=== PATIENT | male | born 1930 | race African-American/Black ===

== ENCOUNTER 2016-10-31 15:31 | Inpatient (IN) | payer MEDICARE, OTHER ==
[~2016-10-31] VITALS: Ht 180.3 cm; Wt 73.5 kg
[~2016-10-31 15:31] MED LIST: TRAZ-129 PO
[2016-10-31] MEDS ORDERED: SODIUM CHLORIDE 0.9% 1,000 ML IV ONE (16:12)
[2016-10-31 16:49] LABS: BASOPHILS % 0.8 % (0.0-2.0); EOSINOPHILS % 1.9 % (0.0-5.0); HEMATOCRIT. 33.9 % (42.0-52.0); HEMOGLOBIN. 11.1 g/dL (14.0-18.0); LYMPHOCYTES % 40.8 % (20.0-50.0); MEAN CORPUSCULAR HEMOGLOBIN 30.1 pg (28.0-32.0); MEAN CORPUSCULAR VOLUME 91.7 fL (80.0-94.0); MEAN PLATELET VOLUME 10.3 fl (7.4-10.4); MONOCYTES % 10.7 % (2.0-8.0); NEUTROPHILS % 45.8 % (40.0-76.0); PLATELET 190 x1000/uL (130-400)
[2016-10-31 16:55] LABS: CARBON DIOXIDE 30 mEq/L (21-32); CHLORIDE 105 mEq/L (98-107)
[2016-10-31 16:56] LABS: AMMONIA 10 uMol/L (<32)
[2016-10-31 17:02] LABS: TROPONIN I < 0.02 ng/mL (0.00-0.04)
[2016-10-31 17:31] LABS: CLARITY URINE CLEAR (CLEAR); COLOR URINE YELLOW (YELLOW); GLUCOSE URINE NEGATIVE (NEGATIVE); KETONES URINE NEGATIVE (NEGATIVE); LEUKOCYTE ESTERASE URINE TRACE (NEGATIVE); NITRITE URINE NEGATIVE (NEGATIVE); OCCULT BLOOD URINE TRACE (NEGATIVE); PH URINE 5.5 (4.5-8.0); PROTEIN URINE NEGATIVE (NEGATIVE); SPECIFIC GRAVITY URINE 1.015 (1.005-1.030); UROBILINOGEN URINE 0.2 E.U./dL (0.2-1.0)
[2016-10-31] MEDS ORDERED: CEFTRIAXONE 1 G PREMIX 50 ML IV ONE (18:30)
[2016-10-31 22:30] VITALS: BP 159/89
[2016-10-31] MEDS ORDERED: NA PHOS,M-B/NA PHOS,DI-BA ENEMA 118ML PR NR (23:45)
[2016-10-31] MEDS ORDERED: LORAZEPAM 1MG TABLET PO PRN (23:45)
[2016-10-31] MEDS ORDERED: ACETAMINOPHEN 650MG/20.3ML UDC PO PRN (23:45)
[2016-11-01] VITALS (7 sets, daily range): BP systolic 135–169; BP diastolic 71–91
[2016-11-01] MEDS: LORAZEPAM 2MG/ML CPJ IV PRN (00:31)
[2016-11-01] MEDS: SODIUM CHLORIDE 0.45% 1,000 ML IV SCH ×2 (00:32→10:14)
[2016-11-01] MEDS ORDERED: LEVOFLOXACIN 500MG PREMIX 100 ML IV NR (02:00)
[2016-11-01] MEDS ORDERED: CLON0.1T PO (03:55)
[2016-11-01] MEDS ORDERED: FOLI-43 PO (03:55)
[2016-11-01] MEDS ORDERED: DOCU-150 PO (03:55)
[2016-11-01] MEDS ORDERED: LORA1TAB PO (03:55)
[2016-11-01] MEDS ORDERED: BISA10SU97 PR (04:04)
[2016-11-01] MEDS ORDERED: ASCO-339 PO (04:04)
[2016-11-01] MEDS ORDERED: ACET-2178 PO (04:04)
[2016-11-01] MEDS ORDERED: SOD133EN RC (04:06)
[2016-11-01] MEDS: APIXABAN 5 MG TABLET PO SCH ×2 (09:38→18:06)
[2016-11-01] MEDS: DOCUSATE SODIUM 250MG CAPSULE PO SCH (09:38)
[2016-11-01] MEDS: FOLIC ACID/VITAMIN B COMP W-C TABLET PO SCH (09:38)
[2016-11-01] MEDS: CLONIDINE 0.1MG TABLET PO PRN (09:38)
[2016-11-01] MEDS: TRAZODONE HCL 50MG TABLET PO SCH (21:15)
[2016-11-02] VITALS: BP 167/86
[2016-11-02] MEDS: SODIUM CHLORIDE 0.45% 1,000 ML IV SCH ×3 (01:06→13:14)
[2016-11-02] MEDS: RISPERIDONE 1MG TABLET PO SCH ×3 (01:14→21:21)
[2016-11-02] MEDS: MEMANTINE HCL 5MG TABLET PO SCH ×2 (01:14→09:28)
[2016-11-02] MEDS: LEVOFLOXACIN 250MG PREMIX 50 ML IV SCH (01:43)
[2016-11-02 04:00] VITALS: BP 170/75
[2016-11-02 08:00] VITALS: BP 148/67
[2016-11-02] MEDS: DOCUSATE SODIUM 250MG CAPSULE PO SCH (09:28)
[2016-11-02] MEDS: FOLIC ACID/VITAMIN B COMP W-C TABLET PO SCH (09:28)
[2016-11-02] MEDS: APIXABAN 5 MG TABLET PO SCH ×2 (09:28→17:29)
[2016-11-02 12:00] VITALS: BP 138/79
[2016-11-02 16:00] VITALS: BP 152/75
[2016-11-02 20:00] VITALS: BP 137/70
[2016-11-02] MEDS: TRAZODONE HCL 50MG TABLET PO SCH (21:21)
[2016-11-03] VITALS: BP 141/76
[2016-11-03] MEDS: SODIUM CHLORIDE 0.45% 1,000 ML IV SCH ×3 (01:13→20:46)
[2016-11-03] MEDS: LEVOFLOXACIN 250MG PREMIX 50 ML IV SCH (01:14)
[2016-11-03 04:00] VITALS: BP 145/73
[2016-11-03 06:09] LABS: BASOPHILS % 0.5 % (0.0-2.0); EOSINOPHILS % 4.5 % (0.0-5.0); HEMATOCRIT. 28.4 % (42.0-52.0); HEMOGLOBIN. 9.1 g/dL (14.0-18.0); LYMPHOCYTES % 53.7 % (20.0-50.0); MEAN CORPUSCULAR HEMOGLOBIN 28.3 pg (28.0-32.0); MEAN CORPUSCULAR VOLUME 88.1 fL (80.0-94.0); MEAN PLATELET VOLUME 11.4 fl (7.4-10.4); MONOCYTES % 12.5 % (2.0-8.0); NEUTROPHILS % 28.8 % (40.0-76.0); PLATELET 106 x1000/uL (130-400); RED BLOOD CELL COUNT 3.22 mill/uL (4.7-6.1); RED CELL DISTRIBUTION WIDTH 13.6 % (11.6-14.6)
[2016-11-03 08:00] VITALS: BP 146/77
[2016-11-03 08:51] LABS: CARBON DIOXIDE 29 mEq/L (21-32); CHLORIDE 106 mEq/L (98-107)
[2016-11-03] MEDS: FOLIC ACID/VITAMIN B COMP W-C TABLET PO SCH (10:42)
[2016-11-03] MEDS: DOCUSATE SODIUM 250MG CAPSULE PO SCH (10:42)
[2016-11-03] MEDS: APIXABAN 5 MG TABLET PO SCH ×2 (10:43→18:02)
[2016-11-03] MEDS: MEMANTINE HCL 5MG TABLET PO SCH (10:43)
[2016-11-03] MEDS: RISPERIDONE 1MG TABLET PO SCH ×2 (10:43→20:46)
[2016-11-03 12:00] VITALS: BP 120/65
[2016-11-03 16:00] VITALS: BP 116/58
[2016-11-03 20:00] VITALS: BP 115/58
[2016-11-04] VITALS: BP 148/77
[2016-11-04] MEDS: LEVOFLOXACIN 250MG PREMIX 50 ML IV SCH (01:45)
[2016-11-04 04:00] VITALS: BP 128/71
[2016-11-04] MEDS: SODIUM CHLORIDE 0.45% 1,000 ML IV SCH (07:45)
[2016-11-04 08:00] VITALS: BP 132/62
[2016-11-04 08:43] LABS: HEMATOCRIT 28.6 % (42.0-52.0); HEMOGLOBIN 9.1 g/dL (14.0-18.0); MEAN CORPUSCULAR HEMOGLOBIN 28.1 pg (28.0-32.0); PLATELET 101 x1000/uL (130-400); RED BLOOD CELL COUNT 3.25 mill/uL (4.7-6.1)
[2016-11-04] MEDS: MEMANTINE HCL 5MG TABLET PO SCH (10:07)
[2016-11-04] MEDS: DOCUSATE SODIUM 250MG CAPSULE PO SCH (10:07)
[2016-11-04] MEDS: FOLIC ACID/VITAMIN B COMP W-C TABLET PO SCH (10:07)
[2016-11-04] MEDS: APIXABAN 5 MG TABLET PO SCH ×2 (10:19→16:50)
[2016-11-04] MEDS: RISPERIDONE 1MG TABLET PO SCH ×2 (10:19→20:20)
[2016-11-04 12:00] VITALS: BP 120/66
[2016-11-04 16:00] VITALS: BP 120/68
[2016-11-04 20:00] VITALS: BP 155/91
[2016-11-05] VITALS: BP 157/102
[2016-11-05] MEDS: LEVOFLOXACIN 250MG PREMIX 50 ML IV SCH (01:19)
[2016-11-05] MEDS: SODIUM CHLORIDE 0.45% 1,000 ML IV SCH ×2 (01:19→13:45)
[2016-11-05] MEDS: LORAZEPAM 2MG/ML CPJ IV PRN (02:46)
[2016-11-05 04:00] VITALS: BP 175/93
[2016-11-05] MEDS: CLONIDINE 0.1MG TABLET PO PRN (04:57)
[2016-11-05 06:09] VITALS: BP 111/69
[2016-11-05] MEDS: DOCUSATE SODIUM 250MG CAPSULE PO SCH (08:55)
[2016-11-05] MEDS: RISPERIDONE 1MG TABLET PO SCH ×2 (08:55→23:16)
[2016-11-05] MEDS: FOLIC ACID/VITAMIN B COMP W-C TABLET PO SCH (08:55)
[2016-11-05] MEDS: MEMANTINE HCL 5MG TABLET PO SCH (08:56)
[2016-11-05] MEDS: APIXABAN 5 MG TABLET PO SCH ×2 (08:56→18:34)
[2016-11-05 20:00] VITALS: BP 148/76
[2016-11-06] VITALS: BP 158/91
[2016-11-06] MEDS: LEVOFLOXACIN 250MG PREMIX 50 ML IV SCH (01:40)
[2016-11-06] MEDS ORDERED: LORAZEPAM 2MG/ML CPJ IV PRN (01:45)
[2016-11-06 04:00] VITALS: BP 151/84
[2016-11-06] MEDS: SODIUM CHLORIDE 0.45% 1,000 ML IV SCH ×2 (05:24→19:21)
[2016-11-06 06:28] LABS: BASOPHILS % 0.8 % (0.0-2.0); EOSINOPHILS % 2.9 % (0.0-5.0); HEMATOCRIT. 30.7 % (42.0-52.0); LYMPHOCYTES % 48.3 % (20.0-50.0); MEAN CORPUSCULAR HEMOGLOBIN 28.4 pg (28.0-32.0); MEAN PLATELET VOLUME 12.4 fl (7.4-10.4); MONOCYTES % 12.5 % (2.0-8.0); NEUTROPHILS % 35.5 % (40.0-76.0); PLATELET 94 x1000/uL (130-400); RED BLOOD CELL COUNT 3.53 mill/uL (4.7-6.1); RED CELL DISTRIBUTION WIDTH 13.9 % (11.6-14.6)
[2016-11-06 07:06] LABS: CHLORIDE 106 mEq/L (98-107)
[2016-11-06 07:11] LABS: CARBON DIOXIDE 29 mEq/L (21-32)
[2016-11-06 08:09] VITALS: BP 165/84
[2016-11-06] MEDS: RISPERIDONE 1MG TABLET PO SCH ×2 (09:00→20:25)
[2016-11-06] MEDS: DOCUSATE SODIUM 250MG CAPSULE PO SCH (09:00)
[2016-11-06] MEDS: MEMANTINE HCL 5MG TABLET PO SCH (09:00)
[2016-11-06] MEDS: FOLIC ACID/VITAMIN B COMP W-C TABLET PO SCH (09:00)
[2016-11-06] MEDS ORDERED: LORAZEPAM 0.5MG TABLET PO PRN (10:30)
[2016-11-06 12:00] VITALS: BP 165/80
[2016-11-06 12:35] LABS: PREALBUMIN 12.2 mg/dL (20.0-40.0)
[2016-11-06 12:37] LABS: INR 1.2
[2016-11-06 16:20] VITALS: BP 158/83
[2016-11-06] MEDS: PANTOPRAZOLE SODIUM 40 MG/VIAL IV SCH ×2 (19:19→20:25)
[2016-11-06 20:00] VITALS: BP 169/83
[2016-11-06] MEDS: CLONIDINE 0.1MG TABLET PO PRN (20:31)
[2016-11-07] VITALS: BP 142/79
[2016-11-07] MEDS: LEVOFLOXACIN 250MG PREMIX 50 ML IV SCH (01:19)
[2016-11-07 04:00] VITALS: BP 138/77
[2016-11-07 08:00] VITALS: BP 156/95
[2016-11-07] MEDS ORDERED: ENOXAPARIN 60MG/0.6ML SYR SUBCUT SCH (10:15)
[2016-11-07] MEDS: FOLIC ACID/VITAMIN B COMP W-C TABLET PO SCH (10:48)
[2016-11-07] MEDS: DOCUSATE SODIUM 250MG CAPSULE PO SCH (10:48)
[2016-11-07] MEDS: RISPERIDONE 1MG TABLET PO SCH ×2 (10:48→22:29)
[2016-11-07] MEDS: MEMANTINE HCL 5MG TABLET PO SCH (10:48)
[2016-11-07] MEDS: PANTOPRAZOLE SODIUM 40 MG/VIAL IV SCH ×2 (10:49→23:03)
[2016-11-07] MEDS: SODIUM CHLORIDE 0.45% 1,000 ML IV SCH ×2 (11:02→22:29)
[2016-11-07 12:00] VITALS: BP 147/81
[2016-11-07 16:00] VITALS: BP 143/66
[2016-11-07 20:00] VITALS: BP 129/69
[2016-11-08] VITALS: BP 164/88
[2016-11-08] MEDS: LEVOFLOXACIN 250MG PREMIX 50 ML IV SCH (02:10)
[2016-11-08 04:00] VITALS: BP 149/86
[2016-11-08 08:00] VITALS: BP 165/88
[2016-11-08] MEDS: DOCUSATE SODIUM 250MG CAPSULE PO SCH (08:13)
[2016-11-08] MEDS: FOLIC ACID/VITAMIN B COMP W-C TABLET PO SCH (08:13)
[2016-11-08] MEDS: CLONIDINE 0.1MG TABLET PO PRN (08:13)
[2016-11-08] MEDS: PANTOPRAZOLE SODIUM 40 MG/VIAL IV SCH (08:13)
[2016-11-08] MEDS: MEMANTINE HCL 5MG TABLET PO SCH (08:13)
[2016-11-08] MEDS: RISPERIDONE 0.25MG TABLET PO SCH ×2 (08:15→20:46)
[2016-11-08] MEDS ORDERED: ENOXAPARIN 60MG/0.6ML SYR SUBCUT SCH (09:00)
[2016-11-08 12:00] VITALS: BP 118/59
[2016-11-08 16:00] VITALS: BP 150/79
[2016-11-08] MEDS: APIXABAN 5 MG TABLET PO SCH (17:08)
[2016-11-08] MEDS: SODIUM CHLORIDE 0.45% 1,000 ML IV SCH (17:08)
[2016-11-08 20:00] VITALS: BP 147/76
[2016-11-09] VITALS (7 sets, daily range): BP systolic 128–174; BP diastolic 74–87
[2016-11-09] MEDS: SODIUM CHLORIDE 0.45% 1,000 ML IV SCH (04:47)
[2016-11-09] MEDS: CLONIDINE 0.1MG TABLET PO PRN (08:51)
[2016-11-09] MEDS: DOCUSATE SODIUM 250MG CAPSULE PO SCH (08:51)
[2016-11-09] MEDS: APIXABAN 5 MG TABLET PO SCH ×2 (08:51→16:36)
[2016-11-09] MEDS: MEMANTINE HCL 5MG TABLET PO SCH (08:51)
[2016-11-09] MEDS: FOLIC ACID/VITAMIN B COMP W-C TABLET PO SCH (08:51)
[2016-11-09] MEDS: RISPERIDONE 0.25MG TABLET PO SCH (08:51)
[2016-11-09] MEDS ORDERED: FAMOTIDINE 20MG TABLET PO SCH (09:00)
[2016-11-09] MEDS ORDERED: RISO02 PO (09:05)
[2016-11-09] MEDS ORDERED: APIX5TAB PO (09:05)
[2016-11-09] MEDS ORDERED: MEMA5TAB7 PO (09:05)
== END 2016-11-09 19:50 | disposition hospice, home (50) | DRG 871 ==
LOC: ER 15:32 → 7WST 18:23
PROVIDERS: ADMIT Specialist; ATTEND Specialist
DX: A41.9 Sepsis, unspecified organism (principal); G93.41 Metabolic encephalopathy; N17.9 Acute kidney failure, unspecified; E44.1 Mild protein-calorie malnutrition; F02.81 Dementia in other diseases classified elsewhere, unspecified severity, with behavioral disturbance; N39.0 Urinary tract infection, site not specified; E86.0 Dehydration; G30.9 Alzheimer's disease, unspecified; I10 Essential (primary) hypertension; R62.7 Adult failure to thrive; R45.1 Restlessness and agitation; D64.9 Anemia, unspecified; M19.90 Unspecified osteoarthritis, unspecified site; F41.9 Anxiety disorder, unspecified; Z66 Do not resuscitate; Z51.5 Encounter for palliative care; Z78.1 Physical restraint status; Z79.899 Other long term (current) drug therapy; Z68.22 Body mass index [BMI] 22.0-22.9, adult; Z86.718 Personal history of other venous thrombosis and embolism; Z85.6 Personal history of leukemia; Z87.440 Personal history of urinary (tract) infections
CPT/HCPCS: 36415; 51702; 70450; 71010; 80048; 80053; 81001; 82040; 82140; 83605; 83880; 84134; 84443; 84484; 85025; 85027; 85610; 87040; 87086; 92610; 93005; 96361; 96365; 96366; 97110; 97116; 97163; 97166; 97530; 99285; A6261; C9113; J0696; J1956; J2060; J7030; A4315